=== PATIENT | male | born 1965 | race Hispanic/Latino ===

== ENCOUNTER 2016-07-19 06:41 | Day surgery (SDC) | payer OTHER, BC ==
[~2016-07-19] VITALS: Ht 172.7 cm; Wt 90.7 kg
[~2016-07-19 06:41] MED LIST: ACTOS45 MG PO; AMARYL2 MG PO; BYDUREON P2 MG/0.65 SC; COREG12.5 M1 PO; EFFIENT10 MG PO; LEVEMIR FL100 UNIT/1 SC; LIPITOR80 MG PO; LO-DOSE ASPIRIN81 M2 PO; LOTENSIN10 MG PO; NOVOLOG PE100 UNITS/ SC; PRINIVIL10 MG PO; RENVELA800 MG PO; ZETIA10 MG PO
[2016-07-19] MEDS ORDERED: BYDUREON P2 MG/0.65 SC (07:38)
[2016-07-19 07:46] LABS: POINT-OF-CARE METER ID UU14174212
[2016-07-19 07:47] VITALS: BP 159/77
[2016-07-19 08:06] LABS: INTER. NORMALIZED RATIO 1.1; PROTHROMBIN TIME 11.6 (9.2-11.2); PTT 27.1 (25-32)
[2016-07-19 08:32] LABS: ANION GAP 9 MEQ/L (2-14); CHLORIDE 98 MEQ/L (99-109); GFR ESTIMATE (CALCULATED) 10 mL/min/; GLUCOSE 106 mg/dL (70-99); POTASSIUM 4.5 MEQ/L (3.7-5.4); SAMPLE HEMOLYSIS CHECK 0; SAMPLE ICTERIC CHECK 0; SAMPLE LIPEMIA CHECK 0; SODIUM 138 MEQ/L (136-147); UREA NITROGEN (BUN) 35 mg/dL (9-23)
[2016-07-19 08:38] LABS: METH RESISTANT S AUREUS PCR NEGATIVE (NEGATIVE)
[2016-07-19 08:39] LABS: PROBE CHECK PASS; SPECIMEN PROCESSING CONTROL PASS
[2016-07-19 10:33] LABS: POINT-OF-CARE METER ID UU13113675
[2016-07-19 11:08] VITALS: BP 170/81
[2016-07-19 12:05] VITALS: BP 173/81
== END 2016-07-19 12:20 | disposition home or self-care (01) ==
LOC: SDC 06:41
PROVIDERS: Ophthalmology
DX: E11.3532 Type 2 diabetes mellitus with proliferative diabetic retinopathy with traction retinal detachment not involving the macula, left eye (principal); H43.12 Vitreous hemorrhage, left eye; I25.110 Atherosclerotic heart disease of native coronary artery with unstable angina pectoris; I12.9 Hypertensive chronic kidney disease with stage 1 through stage 4 chronic kidney disease, or unspecified chronic kidney disease; E11.22 Type 2 diabetes mellitus with diabetic chronic kidney disease; N18.4 Chronic kidney disease, stage 4 (severe); E78.2 Mixed hyperlipidemia; I25.2 Old myocardial infarction; I25.5 Ischemic cardiomyopathy; I65.21 Occlusion and stenosis of right carotid artery; Z87.891 Personal history of nicotine dependence; Z83.3 Family history of diabetes mellitus; Z82.49 Family history of ischemic heart disease and other diseases of the circulatory system; Z79.82 Long term (current) use of aspirin; Z79.4 Long term (current) use of insulin; Z79.899 Other long term (current) drug therapy
CPT/HCPCS: 80048; 82948; 85610; 85730; 87641; J0690; J0713; J3300